=== PATIENT | female | born 1940 ===

== ENCOUNTER → 2021-11-23 13:29 | Outpatient (BNVA) | payer MEDICARE, OTHER, SELFPAY | PROVIDERS: PCP Internal Medicine; Visit Provider Psychiatry & Neurology Neurology | DX: Z13.89 Encounter for screening for other disorder (principal) | CPT/HCPCS: Q3014 ==

== ENCOUNTER → 2021-12-03 09:51 | Outpatient (BNVA) | payer MEDICARE, OTHER, SELFPAY | PROVIDERS: PCP Internal Medicine; Visit Provider Psychiatry & Neurology Neurology | DX: G20 Parkinson's disease (principal); G47.30 Sleep apnea, unspecified; F41.9 Anxiety disorder, unspecified | CPT/HCPCS: 99212 ==

== ENCOUNTER → 2022-01-07 09:26 | Outpatient (BNVA) | payer MEDICARE, OTHER, SELFPAY | PROVIDERS: PCP Internal Medicine; Visit Provider Psychiatry & Neurology Neurology | DX: G20 Parkinson's disease (principal); F41.9 Anxiety disorder, unspecified | CPT/HCPCS: Q3014 ==

== ENCOUNTER → 2022-02-10 07:45 | Outpatient (BNVA) | payer MEDICARE, OTHER, SELFPAY | PROVIDERS: PCP Internal Medicine; Visit Provider Psychiatry & Neurology Neurology | DX: G20 Parkinson's disease (principal); F41.9 Anxiety disorder, unspecified | CPT/HCPCS: 99212 ==

== ENCOUNTER → 2022-02-17 14:10 | Outpatient (BNVA) | payer MEDICARE, OTHER, SELFPAY | PROVIDERS: PCP Internal Medicine; Visit Provider Psychiatry & Neurology Neurology | DX: G20 Parkinson's disease (principal); F41.9 Anxiety disorder, unspecified | CPT/HCPCS: 99212 ==

== ENCOUNTER → 2022-02-23 15:01 | Outpatient (BNVA) | payer MEDICARE, OTHER, SELFPAY | PROVIDERS: Visit Provider Psychiatry & Neurology Neurology | DX: Z13.89 Encounter for screening for other disorder (principal) | CPT/HCPCS: Q3014 ==

== ENCOUNTER → 2022-03-07 14:48 | Outpatient (BNVA) | payer MEDICARE, OTHER, SELFPAY | PROVIDERS: PCP Internal Medicine; Visit Provider Psychiatry & Neurology Neurology | DX: G20 Parkinson's disease (principal); F41.9 Anxiety disorder, unspecified | CPT/HCPCS: 99212 ==

== ENCOUNTER → 2022-03-14 14:54 | Outpatient (BNVA) | payer MEDICARE, OTHER, SELFPAY | PROVIDERS: PCP Internal Medicine; Visit Provider Psychiatry & Neurology Neurology | DX: G20 Parkinson's disease (principal); F41.9 Anxiety disorder, unspecified | CPT/HCPCS: 99212 ==

== ENCOUNTER → 2022-03-23 09:55 | Outpatient (BNVA) | payer MEDICARE, OTHER, SELFPAY | PROVIDERS: PCP Internal Medicine; Visit Provider Psychiatry & Neurology Neurology | DX: G20 Parkinson's disease (principal); F41.9 Anxiety disorder, unspecified | CPT/HCPCS: 99212 ==

== ENCOUNTER → 2022-03-31 12:47 | Outpatient (BNVA) | payer MEDICARE, OTHER, SELFPAY | PROVIDERS: PCP Internal Medicine; Visit Provider Psychiatry & Neurology Neurology | DX: G20 Parkinson's disease (principal); F41.9 Anxiety disorder, unspecified | CPT/HCPCS: 99212 ==

== ENCOUNTER → 2022-04-27 11:25 | Outpatient (BNVA) | payer MEDICARE, OTHER, SELFPAY | PROVIDERS: PCP Internal Medicine; Visit Provider Psychiatry & Neurology Neurology | DX: G20 Parkinson's disease (principal); F41.9 Anxiety disorder, unspecified; Z79.899 Other long term (current) drug therapy | CPT/HCPCS: 99212 ==

== ENCOUNTER → 2022-05-25 11:20 | Outpatient (BNVA) | payer MEDICARE, OTHER, SELFPAY | PROVIDERS: PCP Internal Medicine; Visit Provider Psychiatry & Neurology Neurology | DX: G20 Parkinson's disease (principal); F41.9 Anxiety disorder, unspecified; Z79.899 Other long term (current) drug therapy | CPT/HCPCS: 99212 ==

== ENCOUNTER 2022-06-16 13:00 | Outpatient (RCR) | payer MEDICARE, OTHER, SELFPAY ==
--- NOTE | 2022-04-18 16:17 | P.PNPS_ITS ---
TMS Daily Progress Note Daily TMS Progress Note Date of Service: 04/18/22 Week #: 1 Treatment #(12-12): 1 PHQ-9 Pre-Treatment (12-09): 21 PHQ-9 Most Recent (12-09): 21 Reviewed: TMS Mapping/Re-mapping completed Verification: I have reviewed the TMS Billing Rep Note and agree with the contents. The patient remains a candidate to continue TMS treatment per protocol. Assessment and Plan (1) Major depressive disorder, recurrent severe without psychotic features: Status: Acute (2) Anxiety: Status: Acute (3) Parkinsons disease: Status: Acute Plan mapping completed, first treatment given. minor discomfort.
--- NOTE | 2022-05-02 16:53 | P.PNPS_ITS ---
TMS Daily Progress Note Daily TMS Progress Note Date of Service: 05/02/22 Week #: 3 Treatment #(12-12): 11 PHQ-9 Pre-Treatment (12-09): 21 PHQ-9 Most Recent (12-09): 21 Reviewed: TMS Tech Note Reviewed Verification: I have reviewed the TMS Licensed Architect Note and agree with the contents. The patient remains a candidate to continue TMS treatment per protocol. Assessment and Plan (1) Major depressive disorder, recurrent severe without psychotic features: Status: Acute Plan lexapro has been tapered pt tolerating tx
--- NOTE | 2022-05-03 22:07 | HO.TMSDAILY2 ---
TMS Daily Progress Note Daily TMS Progress Note Date of Service: 05/05/22 Week #: 3 Treatment #(12-12): 12 PHQ-9 Pre-Treatment (12-09): 21 PHQ-9 Most Recent (12-09): 21 Reviewed: TMS Tech Note Reviewed Verification: I have reviewed the TMS Bankruptcy Judge Note and agree with the contents. The patient remains a candidate to continue TMS treatment per protocol.
--- NOTE | 2022-05-05 00:04 | P.PNPS_ITS ---
TMS Daily Progress Note Daily TMS Progress Note Date of Service: 05/04/22 Week #: 3 Treatment #(12-12): 13 PHQ-9 Pre-Treatment (12-09): 21 PHQ-9 Most Recent (12-09): 21 Reviewed: TMS Tech Note Reviewed Verification: I have reviewed the TMS Painter Rough Note and agree with the contents. The patient remains a candidate to continue TMS treatment per protocol.
--- NOTE | 2022-05-05 22:54 | HO.TMSDAILY2 ---
TMS Daily Progress Note Daily TMS Progress Note Date of Service: 05/05/22 Week #: 3 Treatment #(12-12): 14 PHQ-9 Pre-Treatment (12-09): 21 PHQ-9 Most Recent (12-09): 21 Reviewed: TMS Tech Note Reviewed Verification: I have reviewed the TMS Sand And Gravel Plant Operator Note and agree with the contents. The patient remains a candidate to continue TMS treatment per protocol.
--- NOTE | 2022-05-07 00:15 | P.PNPS_ITS ---
TMS Daily Progress Note Daily TMS Progress Note Date of Service: 05/07/22 Week #: 3 Treatment #(12-12): 15 PHQ-9 Pre-Treatment (12-09): 21 PHQ-9 Most Recent (12-09): 21 Reviewed: TMS Tech Note Reviewed Verification: I have reviewed the TMS Licensing Services Clerk Note and agree with the contents. The patient remains a candidate to continue TMS treatment per protocol.
--- NOTE | 2022-05-09 23:24 | P.PNPS_ITS ---
TMS Daily Progress Note Daily TMS Progress Note Date of Service: 05/09/22 Week #: 4 Treatment #(12-12): 16 PHQ-9 Pre-Treatment (12-09): 21 PHQ-9 Most Recent (12-09): 21 Reviewed: TMS Mapping/Re-mapping completed Verification: I have reviewed the TMS Developing Machine Operator Note and agree with the contents. The patient remains a candidate to continue TMS treatment per protocol. lower mt calculated pt had been having transient r hand tremor previously
--- NOTE | 2022-05-11 23:51 | HO.TMSDAILY2 ---
TMS Daily Progress Note Daily TMS Progress Note Date of Service: 05/10/22 Week #: 4 Treatment #(12-12): 17 PHQ-9 Pre-Treatment (12-09): 21 PHQ-9 Most Recent (12-09): 21 Reviewed: TMS Tech Note Reviewed Verification: I have reviewed the TMS Fleet Manager/Dispatch Note and agree with the contents. The patient remains a candidate to continue TMS treatment per protocol.
--- NOTE | 2022-05-11 23:52 | HO.TMSDAILY2 ---
TMS Daily Progress Note Daily TMS Progress Note Date of Service: 05/11/22 Week #: 4 Treatment #(12-12): 18 PHQ-9 Pre-Treatment (12-09): 21 PHQ-9 Most Recent (12-09): 21 Reviewed: TMS Tech Note Reviewed Verification: I have reviewed the TMS English Adjunct Faculty Note and agree with the contents. The patient remains a candidate to continue TMS treatment per protocol.
--- NOTE | 2022-05-11 23:53 | HO.TMSDAILY2 ---
TMS Daily Progress Note Daily TMS Progress Note Date of Service: 05/11/22 Week #: 4 Treatment #(12-12): 18 PHQ-9 Pre-Treatment (12-09): 21 PHQ-9 Most Recent (12-09): 21 Reviewed: TMS Tech Note Reviewed Verification: I have reviewed the TMS Gore Maker Note and agree with the contents. The patient remains a candidate to continue TMS treatment per protocol.
--- NOTE | 2022-05-12 23:54 | HO.TMSDAILY2 ---
TMS Daily Progress Note Daily TMS Progress Note Date of Service: 05/12/22 Week #: 4 Treatment #(12-12): 19 PHQ-9 Pre-Treatment (12-09): 21 PHQ-9 Most Recent (12-09): 21 Reviewed: TMS Tech Note Reviewed Verification: I have reviewed the TMS Marina Dry Dock Manager Note and agree with the contents. The patient remains a candidate to continue TMS treatment per protocol.
--- NOTE | 2022-05-16 22:14 | P.PNPS_ITS ---
TMS Daily Progress Note Daily TMS Progress Note Date of Service: 05/13/22 Week #: 4 Treatment #(12-12): 20 PHQ-9 Pre-Treatment (12-09): 21 PHQ-9 Most Recent (12-09): 21 Reviewed: TMS Tech Note Reviewed Verification: I have reviewed the TMS Pre Billing Specialist Note and agree with the contents. The patient remains a candidate to continue TMS treatment per protocol.
--- NOTE | 2022-05-17 22:15 | P.PNPS_ITS ---
TMS Daily Progress Note Daily TMS Progress Note Date of Service: 05/19/22 Week #: 5 Treatment #(12-12): 21 PHQ-9 Pre-Treatment (12-09): 21 PHQ-9 Most Recent (12-09): 21 Reviewed: TMS Tech Note Reviewed Verification: I have reviewed the TMS Financial Services Representative Note and agree with the contents. The patient remains a candidate to continue TMS treatment per protocol.
--- NOTE | 2022-05-19 00:03 | HO.TMSDAILY2 ---
TMS Daily Progress Note Daily TMS Progress Note Date of Service: 05/18/22 Week #: 5 Treatment #(12-12): 22 PHQ-9 Pre-Treatment (12-09): 21 PHQ-9 Most Recent (12-09): 21 Reviewed: TMS Tech Note Reviewed Verification: I have reviewed the TMS Stoker Erector And Servicer Note and agree with the contents. The patient remains a candidate to continue TMS treatment per protocol. Assessment and Plan (1) Major depressive disorder, recurrent severe without psychotic features: Status: Acute Plan Continue treatment per protocol patient responding
--- NOTE | 2022-05-19 22:24 | P.PNPS_ITS ---
TMS Daily Progress Note Daily TMS Progress Note Date of Service: 05/19/22 Week #: 5 Treatment #(12-12): 23 PHQ-9 Pre-Treatment (12-09): 21 PHQ-9 Most Recent (12-09): 21 Reviewed: TMS Tech Note Reviewed Verification: I have reviewed the TMS Consumer Relations Specialist Note and agree with the contents. The patient remains a candidate to continue TMS treatment per protocol.
--- NOTE | 2022-05-23 22:13 | P.PNPS_ITS ---
TMS Daily Progress Note Daily TMS Progress Note Date of Service: 05/20/22 Week #: 5 Treatment #(12-12): 24 PHQ-9 Pre-Treatment (12-09): 21 PHQ-9 Most Recent (12-09): 21 Reviewed: TMS Tech Note Reviewed Verification: I have reviewed the TMS Cell Efficiency Supervisor Note and agree with the contents. The patient remains a candidate to continue TMS treatment per protocol.
--- NOTE | 2022-05-23 22:15 | P.PNPS_ITS ---
TMS Daily Progress Note Daily TMS Progress Note Date of Service: 05/23/22 Week #: 5 Treatment #(12-12): 25 PHQ-9 Pre-Treatment (12-09): 21 PHQ-9 Most Recent (12-09): 21 Reviewed: TMS Tech Note Reviewed Verification: I have reviewed the TMS Refractory Mixer Note and agree with the contents. The patient remains a candidate to continue TMS treatment per protocol.
--- NOTE | 2022-05-24 21:49 | HO.TMSDAILY2 ---
TMS Daily Progress Note Daily TMS Progress Note Date of Service: 05/24/22 Week #: 6 Treatment #(12-12): 26 PHQ-9 Pre-Treatment (12-09): 21 PHQ-9 Most Recent (12-09): 21 Reviewed: TMS Tech Note Reviewed Verification: I have reviewed the TMS Oxygen Furnace Operator Note and agree with the contents. The patient remains a candidate to continue TMS treatment per protocol.
--- NOTE | 2022-05-25 08:19 | HO.TMSDAILY2 ---
TMS Daily Progress Note Daily TMS Progress Note Date of Service: 05/26/22 Week #: 6 Treatment #(12-12): 27 PHQ-9 Pre-Treatment (12-09): 21 PHQ-9 Most Recent (12-09): 21 Reviewed: TMS Tech Note Reviewed Verification: I have reviewed the TMS Strategic Partnership Representative Note and agree with the contents. The patient remains a candidate to continue TMS treatment per protocol.
--- NOTE | 2022-05-26 22:56 | HO.TMSDAILY2 ---
TMS Daily Progress Note Daily TMS Progress Note Date of Service: 05/26/22 Week #: 6 Treatment #(12-12): 28 PHQ-9 Pre-Treatment (12-09): 21 PHQ-9 Most Recent (12-09): 21 Reviewed: TMS Tech Note Reviewed Verification: I have reviewed the TMS Material Control Associate Note and agree with the contents. The patient remains a candidate to continue TMS treatment per protocol.
--- NOTE | 2022-05-30 22:19 | HO.TMSDAILY2 ---
TMS Daily Progress Note Daily TMS Progress Note Date of Service: 05/27/22 Week #: 6 Treatment #(12-12): 29 PHQ-9 Pre-Treatment (12-09): 21 PHQ-9 Most Recent (12-09): 21 Reviewed: TMS Tech Note Reviewed Verification: I have reviewed the TMS Central Supply Nurse Note and agree with the contents. The patient remains a candidate to continue TMS treatment per protocol. Assessment and Plan (1) Major depressive disorder, recurrent severe without psychotic features: Status: Acute Plan Continue treatment per protocol patient responding well much elaine range of affect
--- NOTE | 2022-05-30 22:21 | P.PNPS_ITS ---
TMS Daily Progress Note Daily TMS Progress Note Date of Service: 05/30/22 Week #: 6 Treatment #(12-12): 30 PHQ-9 Pre-Treatment (12-09): 21 PHQ-9 Most Recent (12-09): 21 Reviewed: TMS Tech Note Reviewed Verification: I have reviewed the TMS Marine Pipe Welder Note and agree with the contents. The patient remains a candidate to continue TMS treatment per protocol.
--- NOTE | 2022-05-31 23:08 | HO.TMSDAILY2 ---
TMS Daily Progress Note Daily TMS Progress Note Date of Service: 06/01/22 Week #: 7 Treatment #(12-12): 31 PHQ-9 Pre-Treatment (12-09): 21 PHQ-9 Most Recent (12-09): 21 Reviewed: TMS Tech Note Reviewed Verification: I have reviewed the TMS Technical Account Executive Note and agree with the contents. The patient remains a candidate to continue TMS treatment per protocol.
--- NOTE | 2022-06-02 22:37 | HO.TMSDAILY2 ---
TMS Daily Progress Note Daily TMS Progress Note Date of Service: 06/01/22 Week #: 7 Treatment #(12-12): 31 PHQ-9 Pre-Treatment (12-09): 21 PHQ-9 Most Recent (12-09): 21 Reviewed: TMS Tech Note Reviewed Verification: I have reviewed the TMS Video Producer Note and agree with the contents. The patient remains a candidate to continue TMS treatment per protocol.
--- NOTE | 2022-06-03 22:18 | P.PNPS_ITS ---
TMS Daily Progress Note Daily TMS Progress Note Date of Service: 06/03/22 Week #: 7 Treatment #(12-12): 32 PHQ-9 Pre-Treatment (12-09): 21 PHQ-9 Most Recent (12-09): 21 Reviewed: TMS Tech Note Reviewed Verification: I have reviewed the TMS Pressure Testing Technician Note and agree with the contents. The patient remains a candidate to continue TMS treatment per protocol.
--- NOTE | 2022-06-10 22:39 | P.PNPS_ITS ---
TMS Daily Progress Note Daily TMS Progress Note Date of Service: 06/08/22 Week #: 7 Treatment #(12-12): 33 PHQ-9 Pre-Treatment (12-09): 21 PHQ-9 Most Recent (12-09): 21 Reviewed: TMS Tech Note Reviewed Verification: I have reviewed the TMS Process Excellence Manager Note and agree with the contents. The patient remains a candidate to continue TMS treatment per protocol.
--- NOTE | 2022-06-10 22:41 | HO.TMSDAILY2 ---
TMS Daily Progress Note Daily TMS Progress Note Date of Service: 06/10/22 Week #: 8 Treatment #(12-12): 34 PHQ-9 Pre-Treatment (12-09): 21 PHQ-9 Most Recent (12-09): 21 Reviewed: TMS Tech Note Reviewed Verification: I have reviewed the TMS Professor Of Literature Note and agree with the contents. The patient remains a candidate to continue TMS treatment per protocol.
--- NOTE | 2022-06-13 22:42 | HO.TMSDAILY2 ---
TMS Daily Progress Note Daily TMS Progress Note Date of Service: 06/13/22 Week #: 8 Treatment #(12-12): 35 PHQ-9 Pre-Treatment (12-09): 21 PHQ-9 Most Recent (12-09): 21 Reviewed: TMS Tech Note Reviewed Verification: I have reviewed the TMS Telecommunications Support Note and agree with the contents. The patient remains a candidate to continue TMS treatment per protocol. Assessment and Plan (1) Major depressive disorder, recurrent severe without psychotic features: Status: Acute Plan Continue treatment per protocol patient responding well much elaine range of affect
--- NOTE | 2022-06-20 21:59 | P.PNPS_ITS ---
TMS Daily Progress Note Daily TMS Progress Note Date of Service: 06/16/22 Week #: 8 Treatment #(12-12): 36 PHQ-9 Pre-Treatment (12-09): 21 PHQ-9 Most Recent (12-09): 21 Reviewed: TMS Tech Note Reviewed Verification: I have reviewed the TMS Associate Brand Manager Note and agree with the contents. The patient remains a candidate to continue TMS treatment per protocol.
== END 2022-06-16 14:09 | disposition home or self-care (01) ==
LOC: HO.PTMS 13:00
PROVIDERS: Visit Provider Psychiatry & Neurology Psychiatry
DX: F33.2 Major depressive disorder, recurrent severe without psychotic features (principal); F41.9 Anxiety disorder, unspecified; G20 Parkinson's disease
CPT/HCPCS: 90867; 90868; 90869

== ENCOUNTER → 2022-07-08 10:53 | Outpatient (BNVA) | payer MEDICARE, OTHER, SELFPAY | PROVIDERS: PCP Internal Medicine; Visit Provider Psychiatry & Neurology Neurology | DX: G20 Parkinson's disease (principal); F41.9 Anxiety disorder, unspecified; Z79.899 Other long term (current) drug therapy | CPT/HCPCS: 99212 ==

== ENCOUNTER → 2022-09-21 11:16 | Outpatient (BNVA) | payer MEDICARE, OTHER, SELFPAY | PROVIDERS: PCP Internal Medicine; Visit Provider Psychiatry & Neurology Neurology | DX: G20 Parkinson's disease (principal); F41.9 Anxiety disorder, unspecified | CPT/HCPCS: 99212 ==

== ENCOUNTER → 2022-10-05 10:25 | Outpatient (BNVA) | payer MEDICARE, OTHER, SELFPAY | PROVIDERS: PCP Internal Medicine; Visit Provider Psychiatry & Neurology Neurology | DX: G20 Parkinson's disease (principal); F41.9 Anxiety disorder, unspecified; Z79.899 Other long term (current) drug therapy | CPT/HCPCS: 99212 ==

== ENCOUNTER → 2022-12-22 10:53 | Outpatient (BNVA) | payer MEDICARE, OTHER, SELFPAY | PROVIDERS: PCP Internal Medicine; Visit Provider Psychiatry & Neurology Neurology | DX: G20 Parkinson's disease (principal); F41.9 Anxiety disorder, unspecified; I95.1 Orthostatic hypotension | CPT/HCPCS: 99212 ==

== ENCOUNTER → 2023-04-24 10:27 | Outpatient (BNVA) | payer MEDICARE, OTHER, SELFPAY | PROVIDERS: PCP Internal Medicine; Visit Provider Psychiatry & Neurology Neurology | DX: G20 Parkinson's disease (principal); F41.9 Anxiety disorder, unspecified; I95.1 Orthostatic hypotension | CPT/HCPCS: 99212 ==

== ENCOUNTER 2023-07-10 09:45 | Outpatient (AMB) | payer MEDICARE, OTHER, SELFPAY ==
--- NOTE | 2023-07-10 09:46 | MHC.OFFVIS ---
Intake Intake Visit Reasons: Follow up Allergies No Known Allergies Allergy (Verified 04/24/23 10:33) PFSH Medical History Anxiety Constipation Major depressive disorder, recurrent severe without psychotic features Orthostatic hypotension Pain Parkinsons disease Sleep apnea Family History Father Heart disease Family/Other Cancer Social History Alcohol intake: never Patient Tobacco Use Status: Never used Tobacco Coding Diagnoses
[2023-07-10 10:29] VITALS: BP 122/76; PULSE 80; O2SAT 97; BMI 22.5
--- NOTE | 2023-07-10 10:29 | A.OFFVIS_ITS ---
Intake Vital Signs 07/10/23 10:29 Height 5 ft 2 in Weight 123 lb BMI 22.5 BP 122/76 Blood Pressure Location Rt brachial Position Sitting Pulse 80 Pulse Source Pulse Oximeter Pulse Oximetry (%) 97 Oxygen Delivery Method Room Air Intake Visit Reasons: Follow up Intake Note: Pt presents to the office today for a follow up. Pt states she is short of br eath today, its hard for her to walk, and she fell 1 time within the past couple of weeks. She states she is also having trouble sleeping. She states she is losing her voice more as well. Accompanied by: Friend Allergies No Known Allergies Allergy (Verified 07/10/23 10:29) Medication List - Last Reconciled 07/10/23 by Gabbie Franco MD acetaminophen (Tylenol) 1,000 mg PO Q6H PRN calcium carbonate (Oyster Shell Calcium) 500 mg PO TID carbidopa-levodopa 23.75-95 mg ER (Rytary) 2 caps PO TID cyanocobalamin (vitamin B-12) (Vitamin B-12) 1 mL PO DAILY diclofenac sodium 1% 2 grams topical BID docusate sodium (Colace Clear) 100 mg PO DAILY duloxetine 60 mg PO DAILY duloxetine 20 mg PO DAILY fludrocortisone 0.1 mg PO DAILY gabapentin 100 mg PO BID 30 days levothyroxine 88 mcg PO DAILY linaclotide (Linzess) 72 mcg PO DAILY lorazepam 0.5 mg PO DAILY PRN lorazepam 0.25 mg PO TID PRN melatonin 3 mg PO BEDTIME PRN midodrine 15 mg (1.5 x 10 mg) PO TID multivitamin 1 tab PO DAILY nystatin 1 appl topical BID polyethylene glycol 3350 (Miralax) 17 grams PO DAILY quetiapine 25 mg PO DAILY rosuvastatin (Crestor) 40 mg PO DAILY rosuvastatin 40 mg PO DAILY sennosides (senna) 17.2 mg PO DAILY HPI HPI Comments History of Present Illness Details 83y/o female comes for follow up.Legs are sore and she feels she is stiff. she was restarted on rytary 23.75/95 1 tab qam id and 2 tabs bid. SHe still has dizziness if she moves fast . she feels - the rytary only helped minimally. she feels she is walking slower and using walker. No falls.she walks about 40 min a day she feels she is slower in the mornings After lunch she feels better. she is on quetipaine 25 mg q 2pm and qhs - for anxiety as per HOSPITAL FELLOW. she is at [employer] now.she has PT speech and OT she was started on fludrocortisone and midodrine9 10 mg at 8am,2pm,8pm) was increased . she is feeling better now . No dizziness or weakness. Mood fluctuates.she gets her medications in bubble pack and she is compliant with medications. she is also c/o constipation which bother her. [facility] Medical History Anxiety Constipation Major depressive disorder, recurrent severe without psychotic features Orthostatic hypotension Pain Parkinsons disease Sleep apnea Family History Father Heart disease Family/Other Cancer Social History Alcohol intake: never Patient Tobacco Use Status: Never used Tobacco Physical Exam Vital Signs: Last Vital Signs Pulse 80 07/10/23 10:29 BP 122/76 07/10/23 10:29 Pulse Ox 97 07/10/23 10:29 Oxygen Delivery Method Room Air 07/10/23 10:29 BMI result Body Mass Index 22.5 Const General: cooperative and anxious Nutritional Appearance: average body habitus Orientation/consciousness: patient oriented x3 Neuro Other: Bradykinesia No tremors FFM and foot taps decreased michelle R>L Right UE cog wheel rigidity 1 Left 1 Gait slow, stooped, decreased arm swings michelle General: patient oriented x3 Assessment & Plan Assessment & Plan (1) Parkinsons disease: Code(s): G20 - Parkinson's disease (2) Anxiety: Code(s): F41.9 - Anxiety disorder, unspecified (3) Orthostatic hypotension: Code(s): I95.1 - Orthostatic hypotension Plan Fludrocortisone 0.1mg qam Midodrine 10mg 1.5 tabs am,12 noon, 4pm Increase fluids- 8 glasses of water with Liquid IV Increase Rytary 1 cap q6am, 1 cap 10 am 2 caps 1 pm 2 caps 7 pm Lorazepam as needed gabapentin 100mg 1-3 tabs qhs Medications: Changed From midodrine 6am,12 noon 4pm 10 mg PO TID 90 tabs 6RF To midodrine 6am,12 noon 4pm 15 mg (1.5 x 10 mg) PO TID 120 tabs 6RF From carbidopa-levodopa 23.75-95 mg ER (Rytary) 6am,12,6pm 2 caps PO TID 180 caps 6RF To carbidopa-levodopa 23.75-95 mg ER (Rytary) 1 tab 6am,2 tabs 12,6pm 2 caps PO TID 180 caps 6RF Coding Level of Care Code Est Pt Level 4 (98567) Diagnoses Parkinsons disease G20 Anxiety F41.9 Orthostatic hypotension I95.1
== END 2023-07-10 11:01 | disposition home or self-care (01) ==
PROVIDERS: PCP Internal Medicine; Visit Provider Psychiatry & Neurology Neurology
DX: G20 Parkinson's disease (principal); F41.9 Anxiety disorder, unspecified; I95.1 Orthostatic hypotension
CPT/HCPCS: 99214

== ENCOUNTER → 2023-07-10 09:45 | Outpatient (BNVA) | payer MEDICARE, OTHER, SELFPAY | PROVIDERS: PCP Internal Medicine; Visit Provider Psychiatry & Neurology Neurology | DX: G20 Parkinson's disease (principal); I95.1 Orthostatic hypotension; F41.9 Anxiety disorder, unspecified | CPT/HCPCS: 99212 ==

== ENCOUNTER 2023-10-19 11:08 | Outpatient (AMB) | payer MEDICARE, OTHER, SELFPAY ==
--- NOTE | 2023-10-19 11:14 | A.OFFVIS_ITS ---
Intake Vital Signs 10/19/23 11:15 Height 5 ft 2 in Weight 120 lb BMI 21.9 BP 92/60 Blood Pressure Location Rt brachial Position Sitting Respiration 16 Pulse 76 Pulse Source Pulse Oximeter Pulse Oximetry (%) 96 Oxygen Delivery Method Room Air Intake Visit Reasons: 4m F/u- no strenght - Confirmed Intake Note: Pt presents to the office for a 4 month follow up for fatigue. Pt reports her symptoms are progressively worse. Manager Research And Development Required: No Allergies No Known Allergies Allergy (Verified 10/19/23 11:14) Medication List - Last Reconciled 10/19/23 by Gabbie Franco MD acetaminophen (Tylenol) 1,000 mg PO Q6H PRN calcium carbonate (Oyster Shell Calcium) 500 mg PO TID carbidopa-levodopa 23.75-95 mg ER (Rytary) orally; 1 tab 6am,1 tab at 10 am, 2 tabs at 1pm ,2 tabs at 6pm cyanocobalamin (vitamin B-12) (Vitamin B-12) 1 mL PO DAILY diclofenac sodium 1% 2 grams topical BID docusate sodium (Colace Clear) 100 mg PO DAILY duloxetine 60 mg PO DAILY duloxetine 20 mg PO DAILY fludrocortisone 0.1 mg PO DAILY gabapentin 100 mg PO BID 30 days levothyroxine 88 mcg PO DAILY linaclotide (Linzess) 72 mcg PO DAILY lorazepam 0.5 mg PO DAILY PRN lorazepam 0.25 mg PO TID PRN melatonin 3 mg PO BEDTIME PRN midodrine 15 mg (1.5 x 10 mg) PO TID multivitamin 1 tab PO DAILY nystatin 1 appl topical BID polyethylene glycol 3350 (Miralax) 17 grams PO DAILY quetiapine 25 mg PO DAILY rosuvastatin (Crestor) 40 mg PO DAILY rosuvastatin 40 mg PO DAILY sennosides (senna) 17.2 mg PO DAILY HPI HPI Comments History of Present Illness Details 83y/o female comes for follow up.SHe rep orts feeling weak she was restarted on rytary 23.75/95 1 tab qam id and 2 tabs bid. SHe still has dizziness if she moves fast . she feels - the rytary only helped minimally. she feels she is walking slower and using walker. No falls.she walks about 40 min a day she feels she is slower in the mornings After lunch she feels better. she is on quetipaine 25 mg q 2pm and qhs - for anxiety as per CORPORATE STRATEGY INTERN. she is at [employer] now.she has PT speech and OT she was started on fludrocortisone and midodrine9 10 mg at 8am,2pm,8pm) was increased . she is feeling better now . No dizziness or weakness. Mood fluctuates.she gets her medications in bubble pack and she is compliant with medications. she is also c/o constipation which bother her. [facility] Medical History Anxiety Constipation Major depressive disorder, recurrent severe without psychotic features Orthostatic hypotension Pain Parkinsons disease Sleep apnea Family History Father Heart disease Family/Other Cancer Social History Alcohol intake: never Patient Tobacco Use Status: Never used Tobacco Physical Exam Vital Signs: Last Vital Signs Pulse 76 10/19/23 11:15 Resp 16 10/19/23 11:15 BP 92/60 10/19/23 11:15 Pulse Ox 96 10/19/23 11:15 Oxygen Delivery Method Room Air 10/19/23 11:15 BMI result Body Mass Index 21.9 Const General: cooperative and anxious Nutritional Appearance: average body habitus Orientation/consciousness: patient oriented x3 Neuro Other: Bradykinesia No tremors FFM and foot taps decreased michelle R>L Right UE cog wheel rigidity 1 Left 1 Gait slow, stooped, decreased arm swings michelle General: patient oriented x3 Assessment & Plan Assessment & Plan (1) Parkinsons disease: Code(s): G20 - Parkinson's disease (2) Anxiety: Code(s): F41.9 - Anxiety disorder, unspecified (3) Orthostatic hypotension: Code(s): I95.1 - Orthostatic hypotension Plan Fludrocortisone 0.1mg qam Midodrine 10mg 1.5 tabs am,12 noon, 4pm Increase fluids- 8 glasses of water with Liquid IV Rytary 1 cap q6am, 1 cap 10 am 2 caps 1 pm 2 caps 7 pm Lorazepam as needed gabapentin 100mg 1-3 tabs qhs I will trial her on droxidopa - 100mg tid - last dose 3 hrs before bedtime Medications: New droxidopa give consistently with OR without food, upon rising, at midday, late PM/at least 3hrs before bedtime 100 mg PO TID 90 caps 2RF [compression stockings] As directed 1 ea 0RF Coding Level of Care Code Est Pt Level 4 (76318) Diagnoses Parkinsons disease G20 Anxiety F41.9 Orthostatic hypotension I95.1
[2023-10-19 11:15] VITALS: BP 92/60; PULSE 76; RESP 16; O2SAT 96; BMI 21.9
== END 2023-10-19 11:50 | disposition home or self-care (01) ==
PROVIDERS: PCP Internal Medicine; Visit Provider Psychiatry & Neurology Neurology
DX: G20.A2 Parkinson's disease without dyskinesia, with fluctuations (principal); F41.9 Anxiety disorder, unspecified; I95.1 Orthostatic hypotension
CPT/HCPCS: 99214

== ENCOUNTER → 2023-10-19 11:08 | Outpatient (BNVA) | payer MEDICARE, OTHER, SELFPAY | PROVIDERS: PCP Internal Medicine; Visit Provider Psychiatry & Neurology Neurology | DX: G20.A1 Parkinson's disease without dyskinesia, without mention of fluctuations (principal); F41.9 Anxiety disorder, unspecified; I95.1 Orthostatic hypotension | CPT/HCPCS: 99212 ==

== ENCOUNTER 2024-01-11 12:29 | Outpatient (AMB) | payer MEDICARE, OTHER, SELFPAY ==
--- NOTE | 2024-01-11 12:30 | MHC.OFFVIS ---
Intake Vital Signs 01/11/24 12:32 Height 5 ft 2 in Weight 123 lb 7 oz BMI 22.6 BP 122/76 Blood Pressure Location Rt brachial Position Sitting Respiration 16 Pulse 76 Pulse Source Pulse Oximeter Pulse Oximetry (%) 97 Oxygen Delivery Method Room Air Intake Visit Reasons: 3 mnts f/u appt- Unable to lvm Intake Note: Pt presents to the office for a 3 month follow up for Parkinson's. Pt c/o increased leg pain since last visit. Managing Jeweler Required: No Allergies No Known Allergies Allergy (Verified 01/11/24 12:31) HPI HPI Comments History of Present Illness Details 83y/o female comes for follow up she was restarted on rytary 23.75/ 1 tab qam id and 2 tabs bid.No dizziness since she started on droxidopa she feels - the rytary only helped minimally. she feels she is walking slower and using walker. No falls.she walks about 40 min a day she feels she is slower in the mornings After lunch she feels better. she is on quetipaine 25 mg q 2pm and qhs - for anxiety as per [employer].she was starte d n tramadol bid for pain. she is at [facility] now.she has PT speech and OT she was started on fludrocortisone and midodrine9 10 mg at 8am,2pm,8pm) was increased . she is feeling better now . No dizziness or weakness. Mood fluctuates.she gets her medications in bubble pack and she is compliant with medications. she is also c/o constipation which bother her. [facility] Medical History Parkinson's disease with neurogenic orthostatic hypotension Orthostatic hypotension Major depressive disorder, recurrent severe without psychotic features Pain Sleep apnea Constipation Parkinsons disease Anxiety Family History Father Heart disease Family/Other Cancer Social History Alcohol intake: never Patient Tobacco Use Status: Never used Tobacco Physical Exam Vital Signs: Last Vital Signs Pulse 76 01/11/24 12:32 Resp 16 01/11/24 12:32 BP 122/76 01/11/24 12:32 Pulse Ox 97 01/11/24 12:32 Oxygen Delivery Method Room Air 01/11/24 12:32 BMI result Body Mass Index 22.6 Const General: cooperative and anxious Nutritional Appearance: average body habitus Orientation/consciousness: patient oriented x3 Neuro Other: Bradykinesia No tremors FFM and foot taps decreased michelle R>L Right UE cog wheel rigidity 1 Left 1 Gait slow, stooped, decreased arm swings michelle General: patient oriented x3 Assessment & Plan Assessment & Plan (1) Parkinson's disease with neurogenic orthostatic hypotension: Code(s): G90.3 - Multi-system degeneration of the autonomic nervous system (2) Parkinsons disease: Code(s): G20 - Parkinson's disease (3) Anxiety: Code(s): F41.9 - Anxiety disorder, unspecified (4) Orthostatic hypotension: Code(s): I95.1 - Orthostatic hypotension Plan Fludrocortisone 0.1mg qam Midodrine 10mg 1.5 tabs am,12 noon, 4pm Increase fluids- 8 glasses of water with Liquid IV Rytary 23/95 1 cap q6am, 2 cap 12 pm 2 caps 4pm 2 caps 7 pm Lorazepam as needed gabapentin 100mg 1-3 tabs qhs droxidopa - 100mg tid - last dose 3 hrs before bedtime Increase gabapentin 200mg bid Medications: Changed From carbidopa-levodopa 23.75-95 mg ER (Rytary) orally; 1 tab 6am,1 tab at 10 am, 2 tabs at 1pm ,2 tabs at 6pm 180 caps 6RF To carbidopa-levodopa 23.75-95 mg ER (Rytary) orally; 1 tab 6am,2 tab at 12pm , 2 tabs at 4pm ,2 tabs at 6pm 180 caps 6RF From gabapentin 1 100 mg PO BID 30 days 60 caps 3RF To gabapentin 1 200 mg (2 x 100 mg) PO BID 30 days 120 caps 3RF Coding Level of Care Code Est Pt Level 4 (36889) Diagnoses Parkinson's disease with neurogenic orthostatic hypotension G90.3 Parkinsons disease G20 Anxiety F41.9 Orthostatic hypotension I95.1
[2024-01-11 12:32] VITALS: BP 122/76; PULSE 76; RESP 16; O2SAT 97; BMI 22.6
== END 2024-01-11 13:07 | disposition home or self-care (01) ==
PROVIDERS: PCP Internal Medicine; Visit Provider Psychiatry & Neurology Neurology
DX: G90.3 Multi-system degeneration of the autonomic nervous system (principal); G20.C Parkinsonism, unspecified; F41.9 Anxiety disorder, unspecified; I95.1 Orthostatic hypotension
CPT/HCPCS: 99214

== ENCOUNTER → 2024-01-11 12:29 | Outpatient (BNVA) | payer MEDICARE, OTHER, SELFPAY | PROVIDERS: PCP Internal Medicine; Visit Provider Psychiatry & Neurology Neurology | DX: G90.3 Multi-system degeneration of the autonomic nervous system (principal); G20.A1 Parkinson's disease without dyskinesia, without mention of fluctuations; F41.9 Anxiety disorder, unspecified; I95.1 Orthostatic hypotension | CPT/HCPCS: 99212 ==